=== PATIENT | male | born 1940 | race Caucasian/White ===

== ENCOUNTER 2018-01-30 08:38 | Day surgery (SDC) | payer MEDICARE, OTHER ==
[2018-01-30] MEDS ORDERED: Ertapenem 1 GM in Sodium Chloride 0.9% 100 ML IVPB SCH (09:00)
[2018-01-30] MEDS ORDERED: Vancomycin HCl 1 GM in Premix Bag 1 BAG IVPB SCH (09:00)
[2018-01-30] MEDS ORDERED: Sodium Chloride 0.9% 40 ML ONE (10:05)
--- NOTE | 2018-01-30 10:35 | SPC ---
SONOGRAPHIC GUIDED LEFT UPPER EXTREMITY PICC PLACEMENT: HISTORY: Toe infection. FINDINGS: After explaining the procedure and answering all questions, the left upper extremity was prepped and draped in the usual sterile fashion. Sterile technique, buffered local anesthesia, sonographic con nce, and a 22-gauge needle were used to carefully access the left basilic vein. Standard technique w as then used to place the tip of a 5 Setswana single-lumen PICC so that the tip lies at the level of th e right atrium. Catheter was flushed and secured externally. The patient tolerated the procedure we ll and was dismissed in good condition. Fluoro time=0 seconds IMPRESSION: Technically successful left upper extremity PICC placement. The catheter is now ready for use. POS: [facility]
[2018-01-30 11:34] VITALS: BP 101/58; TEMP 98.2
== END 2018-01-30 12:00 | disposition home or self-care (01) ==
LOC: SPEC 08:38 → ONC/OP 12:00
PROVIDERS: ATTEND Internal Medicine Infectious Disease
PROC: 02H633Z Insertion of Infusion Device into Right Atrium, Percutaneous Approach (ICD-10-PCS; principal; 2018-01-30)
DX: M86.172 Other acute osteomyelitis, left ankle and foot (principal); I10 Essential (primary) hypertension; G47.33 Obstructive sleep apnea (adult) (pediatric); I25.10 Atherosclerotic heart disease of native coronary artery without angina pectoris; E78.2 Mixed hyperlipidemia; G89.4 Chronic pain syndrome
CPT/HCPCS: 36569; 96365; 96367; 99211; A4216; G0463; J1335; J1642; J3370; J7050

== ENCOUNTER 2018-04-02 12:58 | Outpatient (CLI) | payer MEDICARE, OTHER ==
--- NOTE | 2018-04-02 13:59 | RAD ---
LEFT FOOT TWO VIEWS: History: Foot ulcer. FINDINGS: Enthesophyte from the posterior calcaneus and a tiny enthesophyte from the plantar calcaneus. The tar sals are otherwise unremarkable. Mild degenerative change at the tarsal metatarsal joints. The metata rsals and phalanges appear unremarkable. No focal evidence of lysis or destruction. IMPRESSION: No evidence of osteomyelitis identified. POS: [facility]
== END 2018-04-02 12:59 | disposition home or self-care (01) ==
LOC: RAD 12:58
PROVIDERS: ATTEND Internal Medicine Infectious Disease
DX: L97.529 Non-pressure chronic ulcer of other part of left foot with unspecified severity (principal)
CPT/HCPCS: 36415; 85025; 86140